=== PATIENT | male | born 1950 | race Caucasian/White ===

== ENCOUNTER 2017-09-24 12:59 | Inpatient (IN) | payer OTHER ==
[~2017-09-24] VITALS: Ht 177.8 cm; Wt 117.9 kg
--- NOTE | ~2017-09-24 | S ---
[facility] [place] [address] SURGICAL PATH RPT PROCEDURE Name: MICHELLE TERRAZAS Room #: 424-P DIS IN M.R.#: [id number] Admission: 09/24/17 Date of : 48 Discharge: 09/27/17 Report #: [id number] Path Case #: [id number] PATHOLOGY REPORT COLLECTION DATE: 09/24/2017 RECEIVED DATE: 09/27/2017 SUBMITTING PHYS: Ludivina Ramos OTHER PHYS: Dr. Blake Montero SPECIMEN(S) RECEIVED: A.Peripheral smear * * * * * * * * * * * * FINAL DIAGNOSIS: Peripheral blood smear: - Mild normocytic anemia, mild leukocytosis with lymphocytosis, monocytosis and absolute neutropenia, and moderate thrombocytopenia (see comment). (CLW:renee; 09/27/2017) COMMENT: Overall the peripheral blood has mild normocytic anemia, mild leukocytosis with lymphocytosis and monocytosis with a corresponding absolute neutropenia, and moderate thrombocytopenia. The etiology of the findings is unclear based entirely on slide review. The lymphocytes with reactive changes may indicate a viral infection with an associated neutropenia. The monocytosis could possibly be a recovery effort from the absolute neutropenia. Scattered nucleated red blood cells with dyspoietic changes are also noted. The dyspoietic type changes of the myelomonocytic cells and nucleated red blood cells may be a reactive condition. A primary bone marrow disorder such as chronic myelomonocytic leukemia is also a diagnostic consideration. Other possible causes of thrombocytopenia include immune and non-immune platelet destruction, drug and/or toxic exposures, dilutional and primary bone marrow disorders. Correlation with clinical history and additional laboratory data is required. Recommend close clinical follow-up after resolution of clinical symptoms to confirm the return of values to baseline levels. If persistent and/or unexplained, further evaluation is warranted. The case is discussed with Dr. Almeida and Dr. Montero on 09/27/2017 at 4:00 PM. (CLW:renee; 09/27/2017) PATHOLOGIST: Sheila Haynes M.D. REPORT ELECTRONICALLY SIGNED BY: [place] [address] SURGICAL PATH RPT PROCEDURE Name: MICHELLE TERRAZAS Room #: 424-P [facility]#: [id number] Admission: 09/24/17 Date of : 48 Discharge: 09/27/17 Report #: [id number] Path Case #: [id number] DATE/TIME: 09/27/2017 22:55 * * * * * * * * * * * * MICROSCOPIC DESCRIPTION: CBC Data (09/24/2017): WBC 16,200 /uL, RBC 3.57, hemoglobin 11.0 g/dL, hematocrit 33.1%, MCV 92.8 fL, MCH 30.7 pg, MCHC 33.1 g/dL, RDW 23.0%. Platelet count 60,000 /uL. Manual white blood cell differential: segs 11%, lymphs 55%, monos 30%, metas 3%, and promyelocytes 1%. Peripheral Blood Smear: Cytomorphological examination of the Granado's stained peripheral blood smear confirms the provided data. Red blood cells show mild normocytic anemia with mild anisocytosis. No significant poikilocytosis is identified. No schistocytes or microspherocytes are seen. White blood cells are mildly increased in number. They are predominantly lymphocytes that are a combination of small mature appearing lymphocytes and large reactive appearing lymphocytes. Occasional lymphocytes have prominent nucleoli. Granulocytes and monocytes have dyspoietic changes with abnormal nuclear lobation and decreased / abnormal cytoplasmic granularity. Monocytes have focally abnormal nuclei. There is an absolute neutropenia. Platelets are moderately decreased in number and both normal and abnormal in morphology with rare larger platelets noted. Scattered nucleated red blood cells with dyspoietic changes are noted. (CLW:renee; 09/27/2017) GROSS PATHOLOGY: Received are three peripheral blood smears (one Granado's stained and 2 unstained) all labeled, Michelle Terrazas. CLINICAL HISTORY: 66-year-old man with leukocytosis, anemia and thrombocytopenia. Morphologic review of the peripheral blood smear is requested by the patient's physician. INITIAL CPT CODE(S): A; [place] Professional services performed by [facility] at [address] , [place] [address] Technical services performed by [facility] at [address] [place] [address], [address] [address]. [facility] [address] [place] [address] SURGICAL PATH RPT PROCEDURE Name: MICHELLE TERRAZAS Room #: 424-P DIS IN M.R.#: [id number] Admission: 09/24/17 Date of : 48 Discharge: 09/27/17 Report #: [id number] Path Case #: [id number] [place] [address] PHONE: [phone] DIRECTOR: Ramos Hinds M.D. * * * END OF REPORT * * *
--- NOTE | ~2017-09-24 | EKG ---
[place] [address] [facility] [email or web address] [address] ELECTROCARDIOGRAM REPORT Name: MICHELLE GIBSON Jakob Room #: 424-P ADM IN M.R.#: [id number] Admission: 09/24/17 Attend Phys: Anthony Almeida MD Discharge: Date of : 48 Report #: [id number] THIS REPORT FOR: //name// [facility] ED Test Date: 2017-09-24 Test Time: 13:05:04 Pat Name: MICHELLE GIBSON Department: Room: [facility] Gender: M Cdl Instructor: [place] : 1950 Requested By: Ludivina Ramos Order Number: [id number] MD: Danny Ramirez Measurements Intervals [place] Rate: 86 P: 15 MD: 268 QRS: -9 QRSD: 80 T: 6 QT: 348 QTc: 417 Interpretive Statements Sinus rhythm Occasional premature supraventricular complexes Prolonged MD interval Low voltage, precordial leads Compared to ECG 03/12/2004 10:13:01 Atrial premature complex(es) now present Electronically Signed On 09-25-2017 8:39:26 [employer] by Danny Ramirez [email or web address] <ELECTRONICALLY SIGNED> By: Danny Ramirez MD, [facility] 09/25/17 0839 [id number] 1305 Danny Ramirez MD, [facility] /EPI
[~2017-09-24 12:59] MED LIST: ALEVE220 M1 PO; ASPIRIN EC81 M1 PO; BENAZEPRIL HCL40 MG PO; BENTYL 10 MG CA10 MG PO; C-PAP MACHINE; CALCIUM 500 +1 EAC6 PO; CELEBREX 200 M200 M1 PO; HYDROCHLOROTHIA25 M1 PO; HYDROCODON-ACE1 EAC8 PO; HYDROXYCHLOROQ200 M1 PO; LECITHIN SOYA PO; MEDROL DOSPAK21 TAB PO; MEDROLDOSEPACK PO; MULTIVITAMINS1 EAC7 PO; NEXIUM 40 MG CA40 M1 PO; NORCO 5-325 TA1 EACH PO; PERCOCET 5-3251 EACH PO; POTASSIUM GLUCO PO; PROBIOTIC1 EAC1 PO; TIROSINT88 MCG PO; TRAMADOL 50 MG50 MG PO
[2017-09-24 13:22] VITALS: BP 122/85
[2017-09-24 14:48] LABS: MCV 92.8 fL (80.0-100.0)
[2017-09-24 14:50] LABS: HEMATOCRIT 33.1 % (42.0-52.0); MCH 30.7 pg (26.0-34.0); MCHC 33.1 g/dL (28.0-37.0); RBC 3.57 mil/uL (4.50-6.00); WBC 16.2 thou/uL (4.0-11.0)
[2017-09-24 14:54] LABS: ANION GAP 8 mmol/L (7-16); BUN 13 mg/dL (7-18); CALCIUM 9.3 mg/dL (8.5-10.1); CHLORIDE 102 mmol/L (98-107); CO2 27 mmol/L (21-32); CREATININE 1.1 mg/dL (0.7-1.3); GLUCOSE 102 mg/dL (74-106); SODIUM 137 mmol/L (136-145)
[2017-09-24 15:01] LABS: ALBUMIN 3.7 g/dL (3.4-5.0); SGOT 26 U/L (15-37); SGPT 25 U/L (30-65); TOTAL BILIRUBIN 0.6 mg/dL (<0.1-1.0); TOTAL PROTEIN 7.5 g/dL (6.4-8.2); TROPONIN-I < 0.04 ng/mL (<0.06)
[2017-09-24 15:20] LABS: PLATELET COUNT 60 thou/uL (150-400)
[2017-09-24 15:42] LABS: URINE BILIRUBIN NEGATIVE (Negative); URINE BLOOD NEGATIVE (Negative); URINE CLARITY CLEAR; URINE COLOR YELLOW; URINE GLUCOSE-RANDOM* NEGATIVE (Negative); URINE KETONES NEGATIVE (Negative); URINE LEUKOCYTES NEGATIVE (Negative); URINE NITRITE NEGATIVE (Negative); URINE PROTEIN (DIPSTICK) NEGATIVE (Negative); URINE SPECIFIC GRAVITY <= 1.005 (1.005-1.035); URINE UROBILINOGEN 0.2 E.U./dl (0.2-1.0)
[2017-09-24 18:54] VITALS: BP 122/85
[2017-09-24 19:38] VITALS: BP 121/69
[2017-09-24 20:05] VITALS: BP 112/47
[2017-09-25 04:00] VITALS: BP 130/74
[2017-09-25 06:08] LABS: WBC 12.8 thou/uL (4.0-11.0)
[2017-09-25 06:10] LABS: HEMATOCRIT 33.6 % (42.0-52.0); HEMOGLOBIN 11.1 gm/dL (14.0-18.0); MCH 30.8 pg (26.0-34.0); MCHC 32.9 g/dL (28.0-37.0); MCV 93.6 fL (80.0-100.0); RBC 3.59 mil/uL (4.50-6.00)
[2017-09-25 06:29] LABS: CALCIUM 9.2 mg/dL (8.5-10.1); POTASSIUM 3.8 mmol/L (3.5-5.1)
[2017-09-25 07:45] VITALS: BP 115/72
[2017-09-25 15:10] VITALS: BP 101/57
[2017-09-25 19:20] VITALS: BP 124/82
[2017-09-26 03:45] VITALS: BP 119/69
[2017-09-26 05:53] LABS: CALCIUM 8.7 mg/dL (8.5-10.1); CREATININE 1.1 mg/dL (0.7-1.3); POTASSIUM 3.6 mmol/L (3.5-5.1)
[2017-09-26 05:56] LABS: HEMATOCRIT 31.9 % (42.0-52.0); HEMOGLOBIN 10.4 gm/dL (14.0-18.0); MCH 30.6 pg (26.0-34.0); MCHC 32.6 g/dL (28.0-37.0); MCV 93.7 fL (80.0-100.0); RBC 3.4 mil/uL (4.50-6.00); RDW 23.2 % (10.5-14.5)
[2017-09-26 15:50] VITALS: BP 119/84
[2017-09-26 19:25] VITALS: BP 125/82
[2017-09-27 03:30] VITALS: BP 139/75
[2017-09-27] MEDS ORDERED: FLAGYL500 MG PO (12:19)
[2017-09-27] MEDS ORDERED: CIPRO500 MG PO (12:19)
[2017-09-27] MEDS ORDERED: PREDNISONE 5 MG5 M1 PO (12:19)
[2017-09-27] MEDS ORDERED: OSELB75 PO (12:19)
[2017-09-27 12:45] VITALS: BP 139/75
[2017-09-27 15:56] LABS: ABSOLUTE NEUTROPHILS 1.6 thou/uL (1.4-8.2); CORRECTED WBC 14.1 thou/uL (4.0-11.0); METAMYELOCYTES 3 %; PROMYELOCYTES 1 %
[2017-09-27 15:57] LABS: NUCLEATED RBCS 15 /100WBC
[2017-09-27 22:11] LABS: ADENOVIRUS Negative (Negative); INFLUENZA A Negative (Negative); INFLUENZA B Negative (Negative); METAPNEUMOVIRUS Negative (Negative); PARAINFLUENZA 1 Negative (Negative); PARAINFLUENZA 2 Negative (Negative); PARAINFLUENZA 3 Negative (Negative); RHINOVIRUS Negative (Negative); RSV A Negative (Negative); RSV B Negative (Negative)
== END 2017-09-27 13:53 | disposition home or self-care (01) | DRG 872 ==
LOC: ER 12:59 → 4E 16:25 → EROBS 16:25 → 4E 19:38
PROVIDERS: Hospitalist; Nurse Practitioner Family
DX: A41.9 Sepsis, unspecified organism (principal); K57.92 Diverticulitis of intestine, part unspecified, without perforation or abscess without bleeding; I10 Essential (primary) hypertension; K21.9 Gastro-esophageal reflux disease without esophagitis; M32.9 Systemic lupus erythematosus, unspecified; K57.90 Diverticulosis of intestine, part unspecified, without perforation or abscess without bleeding; M19.90 Unspecified osteoarthritis, unspecified site; R65.20 Severe sepsis without septic shock; D69.6 Thrombocytopenia, unspecified; E03.9 Hypothyroidism, unspecified; F17.210 Nicotine dependence, cigarettes, uncomplicated; J11.1 Influenza due to unidentified influenza virus with other respiratory manifestations; Z88.0 Allergy status to penicillin; Z88.2 Allergy status to sulfonamides; Z88.8 Allergy status to other drugs, medicaments and biological substances; Z91.041 Radiographic dye allergy status; Z79.82 Long term (current) use of aspirin; Z79.899 Other long term (current) drug therapy
CPT/HCPCS: 10084